=== PATIENT | female | born 1940 | race Caucasian/White ===

== ENCOUNTER 2017-02-07 12:16 | Inpatient (IN) | payer OTHER ==
[~2017-02-07] VITALS: Ht 152.4 cm; Wt 55.0 kg
[2017-02-07] VITALS (24 sets, daily range): BP systolic 76–135; BP diastolic 33–76
[2017-02-07] MEDS: metroNIDAZOLE 500MG/100ML 100 ML IV SCH
[2017-02-07] MEDS: methylPREDNISolone SOD SUCC 40 MG/ML VL IV SCH
[~2017-02-07 12:16] MED LIST: BECL0.07; IPRAAER5; THEOPHYLINE
[2017-02-07] MEDS ORDERED: ETOMIDATE (2MG/ML) 20ML VIAL IV ONE ×2 (13:13→16:15)
[2017-02-07] MEDS ORDERED: SUCCINYLCHOLINE CHLORIDE 20 MG/ML 10ML VIAL IV ONE ×2 (13:14→16:15)
[2017-02-07] MEDS ORDERED: MIDAZOLAM DRIP 100 mg/100mL NS 100 ML IV ONE (13:21)
[2017-02-07] MEDS ORDERED: SODIUM CHLORIDE 0.9% 1,000 ML IV ONE ×3 (13:45→17:30)
[2017-02-07] MEDS ORDERED: IPRATROPIUM BROM 0.5 MG/2.5ML INH SOL HHN ONE (13:45)
[2017-02-07] MEDS ORDERED: cefTRIAXone 1GM/50ML D5W 50 ML IV ONE (13:45)
[2017-02-07] MEDS ORDERED: methylPREDNISolone SOD SUCC 125 MG/2 ML VL IV ONE (13:45)
[2017-02-07] MEDS ORDERED: ALBUTEROL SULF 2.5 MG/0.5ML(0.5%) NEB SOLN HHN ONE (13:45)
[2017-02-07] MEDS ORDERED: AZITHROMYCIN 500MG/D5W 250ML 250 ML IV ONE (14:15)
[2017-02-07 14:31] LABS: Allen Test Yes; Base Excess -18.3 mmol/L (-2.0-2.0); Blood 02Sat 84.1 % (96-100); Blood COHb 0.8 % (0.5-1.5); Blood MetHb 0.3 % (0.0-1.5); HCO3 11.8 mmol/L (22-26.0); HHb 15.7 % (0.0-5.0); MODE VENT - A/C; O2Hb 83.2 % (94.0-97.0); PCO2 45.2 mmHg (35.0-45.0); PCO2(T) 45.2 mmHg (35.0-45.0); Sample Type Arterial; pH 7.036 (7.350-7.450)
[2017-02-07 14:39] LABS: DEFINITIVE VIEW TRANSMISSION; Hematocrit 36.2 % (36.0-46.0); Hemoglobin 11.6 g/dL (12.2-16.2); Mean Corpuscular Hemoglobin 27.1 pg (28.0-32.0); Mean Corpuscular Volume 84.6 fL (80.0-100.0); Mean Platelet Volume 6.9 fL (7.4-10.4); Platelet Count (auto) 517 10^3/uL (140-450); Red Cell Distribution Width 19.7 % (11.6-16.0); SUSPECT VIEW TRANSMISSION; White Blood Cell 25.5 10^3/uL (4.4-10.8)
[2017-02-07] MEDS ORDERED: NOREPINEPHRINE BITARTRATE 250 ML IV ONE (14:42)
[2017-02-07 14:47] LABS: Metamyelocytes % 0; Myelocytes % 0; Promyelocytes % 0; Reactive Lymphocytes 0
[2017-02-07] MEDS ORDERED: SODIUM BICARBONATE 8.4% INJ 50ML SYRINGE ONE ×2 (14:55→22:35)
[2017-02-07] MEDS ORDERED: DOPamine 1600MCG/ML 250 ML IV ONE (15:15)
[2017-02-07 15:16] LABS: Burr Cells FEW
[2017-02-07 15:17] LABS: Anisocytosis Slight
[2017-02-07 15:18] LABS: Large Platelets FEW; Platelet Estimate Increa
[2017-02-07] MEDS ORDERED: ENOXAPARIN SOD 30 MG/0.3 ML SYRINGE SC ONE (16:00)
[2017-02-07 16:06] LABS: Albumin 2.4 g/dL (3.4-5.0); Bilirubin, Total 0.2 mg/dL (0.2-1.0); Calcium 7.9 mg/dL (8.5-10.1); Magnesium 2.3 mg/dL (1.6-2.6)
[2017-02-07 16:17] LABS: Temperature: 22.9 C (20.0-25.0)
[2017-02-07] MEDS ORDERED: SODIUM BICARBONATE 8.4 % INJ 50ML VIAL IV ONE ×3 (16:30→22:00)
[2017-02-07] MEDS: SODIUM CHLORIDE 0.9% 1,000 ML IV SCH (16:50)
[2017-02-07] MEDS ORDERED: NITROGLYCERIN 0.4 MG SL TAB SL PRN (17:00)
[2017-02-07] MEDS ORDERED: PROMETHAZINE HCL 25 MG/ML 1ML IV PRN (17:00)
[2017-02-07] MEDS ORDERED: metroNIDAZOLE 500MG/100ML 100 ML IV ONE (17:00)
[2017-02-07] MEDS ORDERED: MORPHINE SULF INJ 2 MG/ML SYRINGE 1ML IV PRN ×2 (17:00)
[2017-02-07] MEDS ORDERED: PIPERACILLIN-TAZOB 2.25GM 50 ML IV ONE (17:00)
[2017-02-07] MEDS ORDERED: PANTOPRAZOLE SODIUM 40 MG/10 ML VIAL IV ONE (17:00)
[2017-02-07] MEDS ORDERED: ALBUTEROL SULF 2.5 MG/0.5ML(0.5%) NEB SOLN NEB PRN (17:00)
[2017-02-07 17:27] LABS: INR 1.02 (0.9-1.15); Partial Thromboplastin Time 32.3 sec (22.64-33.71); Prothrombin Time 11.1 sec (9.37-12.3)
[2017-02-07] MEDS ORDERED: EPINEPHrine HCL INJECTION 4 MG in D5W 5% 250 ML IV ONE (17:30)
[2017-02-07] MEDS ORDERED: ALBUMIN 25% 100 ML IV ONE (17:45)
[2017-02-07] MEDS: IPRATROPIUM BROM 0.5 MG/2.5ML INH SOL NEB SCH (18:00)
[2017-02-07] MEDS: ALBUTEROL SULF 2.5 MG/0.5ML(0.5%) NEB SOLN NEB SCH (18:00)
[2017-02-07] MEDS: PIPERACILLIN-TAZOB 2.25GM 50 ML IV SCH (19:00)
[2017-02-07 19:19] LABS: Hematocrit 30.9 % (36.0-46.0); Hemoglobin 9.8 g/dL (12.2-16.2)
[2017-02-07] MEDS: PHENYLEPHRINE INJ 20 MG in SODIUM CHL 0.9% 250 ML IV SCH ×2 (19:45→20:30)
[2017-02-07] MEDS: VASOPRESSIN 50 UNITS in SODIUM CHL 0.9% 247.5 ML IV SCH (19:45)
[2017-02-07] MEDS: NOREPINEPHRINE BITARTRATE 250 ML IV SCH (19:55)
[2017-02-07] MEDS: LINEZOLID 600MG/300ML 300 ML IV SCH (20:00)
[2017-02-07] MEDS ORDERED: EPINEPHrine HCL 250 ML IV ONE (20:17)
[2017-02-07] MEDS ORDERED: PHENYLEPHRINE IV 250 ML IV ONE (20:18)
[2017-02-07 21:43] LABS: Allen Test Modified; Base Excess -18.3 mmol/L (-2.0-2.0); Blood 02Sat 98.7 % (96-100); Blood COHb 0.7 % (0.5-1.5); Blood MetHb 0.3 % (0.0-1.5); HCO3 9.9 mmol/L (22-26.0); HHb 1.3 % (0.0-5.0); MODE VENT - A/C; O2Hb 97.7 % (94.0-97.0); PCO2 31.4 mmHg (35.0-45.0); PO2 224.2 mmHg (80.0-100.0); PO2(T) 222.7 mmHg (80.0-100.0); Sample Type Arterial; pH 7.115 (7.350-7.450)
[2017-02-07] MEDS ORDERED: SODIUM BICARBONATE 50ML VIAL 100 ML in SOD CHL 0.45% 1,000 ML IV SCH (22:00)
[2017-02-08] VITALS (84 sets, daily range): BP systolic 83–157; BP diastolic 34–120
[2017-02-08] MEDS: metroNIDAZOLE 500MG/100ML 100 ML IV SCH ×4 (00:21→18:55)
[2017-02-08] MEDS: PIPERACILLIN-TAZOB 2.25GM 50 ML IV SCH ×4 (00:22→19:13)
[2017-02-08] MEDS: methylPREDNISolone SOD SUCC 40 MG/ML VL IV SCH ×4 (00:22→18:00)
[2017-02-08 00:49] LABS: Hematocrit 29.5 % (36.0-46.0); Hemoglobin 9.4 g/dL (12.2-16.2)
[2017-02-08] MEDS: SODIUM CHLORIDE 0.9% 1,000 ML IV SCH ×3 (02:50→22:50)
[2017-02-08 03:52] LABS: DEFINITIVE VIEW TRANSMISSION; Hematocrit 28.4 % (36.0-46.0); Hemoglobin 9.3 g/dL (12.2-16.2); Mean Corpuscular Hemoglobin 27.1 pg (28.0-32.0); Mean Corpuscular Hgb Conc. 32.6 g/dL (32.0-36.0); Mean Corpuscular Volume 83.1 fL (80.0-100.0); Mean Platelet Volume 6.7 fL (7.4-10.4); Platelet Count (auto) 451 10^3/uL (140-450); White Blood Cell 22.8 10^3/uL (4.4-10.8)
[2017-02-08] MEDS ORDERED: MIDAZOLAM DRIP 100 mg/100mL NS 100 ML IV ONE ×2 (04:00→14:41)
[2017-02-08 04:05] LABS: Red Cell Distribution Width 20.1 % (11.6-16.0)
[2017-02-08 04:06] LABS: Metamyelocytes % 0; Myelocytes % 0; Promyelocytes % 0; Reactive Lymphocytes 0
[2017-02-08 04:18] LABS: Albumin 2.6 g/dL (3.4-5.0); BUN/Creatinine Ratio 20.7; Bilirubin, Total 0.3 mg/dL (0.2-1.0); Calcium 6.3 mg/dL (8.5-10.1); Total Protein 5.3 g/dL (6.4-8.2)
[2017-02-08 04:42] LABS: Anisocytosis Slight; Burr Cells MODERATE; Platelet Estimate Increased
[2017-02-08] MEDS: LINEZOLID 600MG/300ML 300 ML IV SCH ×2 (05:14→17:14)
[2017-02-08] MEDS: ALBUTEROL SULF 2.5 MG/0.5ML(0.5%) NEB SOLN NEB SCH ×4 (06:19→18:28)
[2017-02-08] MEDS: IPRATROPIUM BROM 0.5 MG/2.5ML INH SOL NEB SCH ×4 (06:19→18:28)
[2017-02-08] MEDS ORDERED: SODIUM BICARBONATE 50ML VIAL 150 ML in SOD CHL 0.45% 1,000 ML IV SCH ×2 (07:15→07:19)
[2017-02-08 08:39] LABS: Allen Test Modified; Base Excess -9.8 mmol/L (-2.0-2.0); Blood 02Sat 97.2 % (96-100); Blood COHb 1.1 % (0.5-1.5); Blood MetHb 0.3 % (0.0-1.5); HCO3 15.1 mmol/L (22-26.0); HHb 2.8 % (0.0-5.0); MODE VENT - A/C; O2Hb 95.8 % (94.0-97.0); PO2 102.9 mmHg (80.0-100.0); PO2(T) 102.9 mmHg (80.0-100.0); Sample Type Arterial
[2017-02-08] MEDS: ENOXAPARIN SOD 30 MG/0.3 ML SYRINGE SC SCH (09:41)
[2017-02-08] MEDS: ASPirin 81 mg TAB NG SCH (09:41)
[2017-02-08] MEDS ORDERED: DEXTROSE (50%) 50ML SYRG IV PRN (10:00)
[2017-02-08] MEDS: fentaNYL Drip 2500mCg/250mlNS 250 ML IV SCH (11:43)
[2017-02-08] MEDS: ACCU-CHEK COMFORT CURVE STRIP VI SCH ×2 (11:51→18:00)
[2017-02-08] MEDS: InsuLIN REG 1unit/0.01ml Soln (100units/ml) SC SCH ×2 (12:00→18:00)
[2017-02-08 12:21] LABS: Urine Bilirubin Negative (Negative); Urine Color Yellow (Yellow); Urine Ketone Negative (Negative); Urine Mucus FEW (None Seen); Urine Nitrite Negative (Negative); Urine RBC 1 /hpf (0 - 4); Urine Urobilinogen Normal (Negative)
[2017-02-08 12:26] LABS: Urine Blood 1+ /uL (Negative); Urine Glucose 3+ mg/dL (Normal)
[2017-02-08] MEDS: PHENYLEPHRINE INJ 20 MG in SODIUM CHL 0.9% 250 ML IV SCH ×2 (13:30→20:32)
[2017-02-08] MEDS: MIDAZOLAM DRIP 100 mg/100mL NS 100 ML IV SCH (14:55)
[2017-02-08 15:40] LABS: Allen Test Modified; Base Excess -3.6 mmol/L (-2.0-2.0); Blood 02Sat 95.3 % (96-100); Blood MetHb 0.3 % (0.0-1.5); HCO3 21.9 mmol/L (22-26.0); HHb 4.6 % (0.0-5.0); MODE VENT - A/C; O2Hb 94.1 % (94.0-97.0); PCO2 41.7 mmHg (35.0-45.0); PCO2(T) 41.7 mmHg (35.0-45.0); PO2 81.5 mmHg (80.0-100.0); PO2(T) 81.5 mmHg (80.0-100.0); Sample Type Arterial; pH 7.339 (7.350-7.450)
[2017-02-08] MEDS: NOREPINEPHRINE BITARTRATE 250 ML IV SCH (18:55)
[2017-02-08] MEDS: VASOPRESSIN 50 UNITS in SODIUM CHL 0.9% 247.5 ML IV SCH (19:45)
[2017-02-08] MEDS ORDERED: PHENYLEPHRINE IV 250 ML IV ONE (20:23)
[2017-02-08 20:31] LABS: Allen Test Modified; Base Excess 0.1 mmol/L (-2.0-2.0); Blood 02Sat 95.9 % (96-100); Blood COHb 0.8 % (0.5-1.5); Blood MetHb 0.3 % (0.0-1.5); HHb 4.1 % (0.0-5.0); MODE VENT - A/C; O2Hb 94.8 % (94.0-97.0); PO2 86.9 mmHg (80.0-100.0); PO2(T) 86.9 mmHg (80.0-100.0); Sample Type Arterial; pH 7.352 (7.350-7.450)
[2017-02-09] VITALS (96 sets, daily range): BP systolic 88–133; BP diastolic 49–84
[2017-02-09] MEDS: ALBUTEROL SULF 2.5 MG/0.5ML(0.5%) NEB SOLN NEB SCH ×4 (00:15→18:22)
[2017-02-09] MEDS: IPRATROPIUM BROM 0.5 MG/2.5ML INH SOL NEB SCH ×4 (00:15→18:22)
[2017-02-09] MEDS: metroNIDAZOLE 500MG/100ML 100 ML IV SCH ×5 (00:16→23:08)
[2017-02-09] MEDS: methylPREDNISolone SOD SUCC 40 MG/ML VL IV SCH ×5 (00:16→23:07)
[2017-02-09] MEDS: PIPERACILLIN-TAZOB 2.25GM 50 ML IV SCH ×5 (00:16→23:08)
[2017-02-09] MEDS: ACCU-CHEK COMFORT CURVE STRIP VI SCH ×4 (00:18→17:38)
[2017-02-09 03:52] LABS: Albumin 2.2 g/dL (3.4-5.0); BUN/Creatinine Ratio 24.5
[2017-02-09 03:55] LABS: Bilirubin, Total 0.2 mg/dL (0.2-1.0); Total Protein 5.3 g/dL (6.4-8.2)
[2017-02-09] MEDS: LINEZOLID 600MG/300ML 300 ML IV SCH ×2 (03:58→16:39)
[2017-02-09 04:26] LABS: Calcium 5.6 mg/dL (8.5-10.1)
[2017-02-09 04:49] LABS: Phosphorus 1.8 mg/dL (2.5-4.90)
[2017-02-09] MEDS: InsuLIN REG 1unit/0.01ml Soln (100units/ml) SC SCH ×4 (06:18→17:38)
[2017-02-09 07:00] LABS: Base Excess 0.4 mmol/L (-2.0-2.0); Blood 02Sat 95.8 % (96-100); Blood COHb 0.5 % (0.5-1.5); Blood MetHb 0.3 % (0.0-1.5); HCO3 25.4 mmol/L (22-26.0); HHb 4.2 % (0.0-5.0); MODE VENT - A/C; PCO2 42.4 mmHg (35.0-45.0); PCO2(T) 42.4 mmHg (35.0-45.0); PIP 18; PO2 87.5 mmHg (80.0-100.0); PO2(T) 87.5 mmHg (80.0-100.0); Sample Type Arterial; pH 7.395 (7.350-7.450)
[2017-02-09] MEDS: SODIUM CHLORIDE 0.9% 1,000 ML IV SCH (08:50)
[2017-02-09] MEDS: fentaNYL Drip 2500mCg/250mlNS 250 ML IV SCH (09:45)
[2017-02-09] MEDS: ENOXAPARIN SOD 30 MG/0.3 ML SYRINGE SC SCH (09:51)
[2017-02-09] MEDS: ASPirin 81 mg TAB NG SCH (09:52)
[2017-02-09] MEDS ORDERED: CALCIUM GLUC IV ONE (10:15)
[2017-02-09] MEDS ORDERED: POTASSIUM PHOSPHATE 44 MEQ in SODIUM CHL 0.9% 250 ML IV ONE (10:15)
[2017-02-09] MEDS ORDERED: SODIUM CHL 0.9% IV ONE (10:15)
[2017-02-09] MEDS ORDERED: SOD CHL 0.45% WITH 20MEQ KCL 1,000 ML IV ONE (10:45)
[2017-02-09] MEDS: PHENYLEPHRINE INJ 20 MG in SODIUM CHL 0.9% 250 ML IV SCH ×2 (13:25→13:37)
[2017-02-09] MEDS: MIDAZOLAM DRIP 100 mg/100mL NS 100 ML IV SCH (14:40)
[2017-02-09] MEDS ORDERED: Diabetisource AC 1 Liter GT SCH (17:00)
[2017-02-09] MEDS: NOREPINEPHRINE BITARTRATE 250 ML IV SCH (19:45)
[2017-02-09] MEDS: VASOPRESSIN 50 UNITS in SODIUM CHL 0.9% 247.5 ML IV SCH (19:45)
[2017-02-10] VITALS (91 sets, daily range): BP systolic 82–127; BP diastolic 45–82
[2017-02-10] MEDS: IPRATROPIUM BROM 0.5 MG/2.5ML INH SOL NEB SCH ×4 (00:05→18:33)
[2017-02-10] MEDS: ALBUTEROL SULF 2.5 MG/0.5ML(0.5%) NEB SOLN NEB SCH ×4 (00:05→18:32)
[2017-02-10] MEDS: LINEZOLID 600MG/300ML 300 ML IV SCH ×2 (04:22→17:00)
[2017-02-10 05:05] LABS: BUN/Creatinine Ratio 24.1; Bilirubin, Total 0.2 mg/dL (0.2-1.0); Potassium 3.7 mmol/L (3.5-5.1); Total Protein 4.7 g/dL (6.4-8.2)
[2017-02-10 05:09] LABS: Calcium 5.5 mg/dL (8.5-10.1)
[2017-02-10] MEDS: PHENYLEPHRINE INJ 20 MG in SODIUM CHL 0.9% 250 ML IV SCH ×4 (06:12→20:30)
[2017-02-10] MEDS: methylPREDNISolone SOD SUCC 40 MG/ML VL IV SCH ×3 (06:16→17:56)
[2017-02-10] MEDS: metroNIDAZOLE 500MG/100ML 100 ML IV SCH ×3 (06:16→17:55)
[2017-02-10] MEDS: InsuLIN REG 1unit/0.01ml Soln (100units/ml) SC SCH ×4 (06:17→18:08)
[2017-02-10] MEDS: ACCU-CHEK COMFORT CURVE STRIP VI SCH ×4 (06:17→18:08)
[2017-02-10] MEDS: PIPERACILLIN-TAZOB 2.25GM 50 ML IV SCH ×3 (06:18→19:33)
[2017-02-10] MEDS ORDERED: CALCIUM GLUC IV ONE (06:30)
[2017-02-10] MEDS ORDERED: SODIUM CHL 0.9% IV ONE (06:30)
[2017-02-10 07:38] LABS: Base Excess -0.6 mmol/L (-2.0-2.0); Blood 02Sat 96.1 % (96-100); Blood COHb 0.8 % (0.5-1.5); Blood MetHb 0.3 % (0.0-1.5); HCO3 24.6 mmol/L (22-26.0); HHb 3.9 % (0.0-5.0); MODE VENT - A/C; PCO2 43.1 mmHg (35.0-45.0); PCO2(T) 43.1 mmHg (35.0-45.0); PO2 88.4 mmHg (80.0-100.0); PO2(T) 88.4 mmHg (80.0-100.0); Sample Type Arterial; pH 7.375 (7.350-7.450)
[2017-02-10] MEDS: fentaNYL Drip 2500mCg/250mlNS 250 ML IV SCH (08:22)
[2017-02-10] MEDS: SOD CHL 0.45% WITH 20MEQ KCL 1,000 ML IV SCH ×2 (09:30→19:34)
[2017-02-10] MEDS: ENOXAPARIN SOD 30 MG/0.3 ML SYRINGE SC SCH (09:31)
[2017-02-10] MEDS: ASPirin 81 mg TAB NG SCH (09:31)
[2017-02-10] MEDS: MIDAZOLAM DRIP 100 mg/100mL NS 100 ML IV SCH (09:33)
[2017-02-10] MEDS ORDERED: POTASSIUM PHOSPHATE 26.4 MEQ in SODIUM CHL 0.9% 100 ML IV ONE (12:00)
[2017-02-10] MEDS: NOREPINEPHRINE BITARTRATE 250 ML IV SCH (19:45)
[2017-02-10] MEDS: VASOPRESSIN 50 UNITS in SODIUM CHL 0.9% 247.5 ML IV SCH (19:45)
[2017-02-11] VITALS (107 sets, daily range): BP systolic 89–131; BP diastolic 49–97
[2017-02-11] MEDS: metroNIDAZOLE 500MG/100ML 100 ML IV SCH ×5 (00:02→23:43)
[2017-02-11] MEDS: methylPREDNISolone SOD SUCC 40 MG/ML VL IV SCH ×5 (00:02→23:43)
[2017-02-11] MEDS: IPRATROPIUM BROM 0.5 MG/2.5ML INH SOL NEB SCH ×4 (00:23→18:16)
[2017-02-11] MEDS: ALBUTEROL SULF 2.5 MG/0.5ML(0.5%) NEB SOLN NEB SCH ×4 (00:23→18:16)
[2017-02-11] MEDS: PIPERACILLIN-TAZOB 2.25GM 50 ML IV SCH ×4 (01:00→22:00)
[2017-02-11] MEDS: LINEZOLID 600MG/300ML 300 ML IV SCH ×2 (04:56→18:30)
[2017-02-11] MEDS: SOD CHL 0.45% WITH 20MEQ KCL 1,000 ML IV SCH (05:02)
[2017-02-11 05:23] LABS: BUN/Creatinine Ratio 23.6; Bilirubin, Total 0.3 mg/dL (0.2-1.0); Phosphorus 4.6 mg/dL (2.5-4.90); Potassium 4.8 mmol/L (3.5-5.1); Total Protein 4.9 g/dL (6.4-8.2)
[2017-02-11 05:26] LABS: Calcium 5.8 mg/dL (8.5-10.1)
[2017-02-11] MEDS: MIDAZOLAM DRIP 100 mg/100mL NS 100 ML IV SCH (05:41)
[2017-02-11] MEDS ORDERED: CALCIUM GLUC 4.65 MEQ/10ML 4.65 MEQ in SODIUM CHL 0.9% 50 ML IV ONE ×2 (05:45→11:45)
[2017-02-11] MEDS ORDERED: CALCIUM GLUC 4.65 MEQ/10ML IV ONE (05:54)
[2017-02-11] MEDS: ACCU-CHEK COMFORT CURVE STRIP VI SCH ×5 (06:00→23:44)
[2017-02-11] MEDS: InsuLIN REG 1unit/0.01ml Soln (100units/ml) SC SCH ×5 (06:00→23:44)
[2017-02-11] MEDS: PHENYLEPHRINE INJ 20 MG in SODIUM CHL 0.9% 250 ML IV SCH ×3 (08:00→23:45)
[2017-02-11 08:48] LABS: DEFINITIVE VIEW TRANSMISSION; Hemoglobin 10.1 g/dL (12.2-16.2); Mean Corpuscular Hemoglobin 27.2 pg (28.0-32.0); Mean Corpuscular Hgb Conc. 32.6 g/dL (32.0-36.0); Mean Corpuscular Volume 83.6 fL (80.0-100.0); Mean Platelet Volume 7.7 fL (7.4-10.4); Platelet Count (auto) 326 10^3/uL (140-450); SUSPECT VIEW TRANSMISSION; White Blood Cell 17.4 10^3/uL (4.4-10.8)
[2017-02-11 08:54] LABS: Allen Test Yes; Base Excess -5.8 mmol/L (-2.0-2.0); Blood COHb 0.9 % (0.5-1.5); Blood MetHb 0.3 % (0.0-1.5); HHb 4.9 % (0.0-5.0); MODE VENT - A/C; O2Hb 93.9 % (94.0-97.0); PCO2 40.1 mmHg (35.0-45.0); PCO2(T) 40.1 mmHg (35.0-45.0); PO2 82.7 mmHg (80.0-100.0); PO2(T) 82.7 mmHg (80.0-100.0); Sample Type Arterial; pH 7.315 (7.350-7.450)
[2017-02-11 09:01] LABS: Red Cell Distribution Width 20.8 % (11.6-16.0)
[2017-02-11 09:02] LABS: Metamyelocytes % 0; Myelocytes % 0; Promyelocytes % 0; Reactive Lymphocytes 0
[2017-02-11 09:26] LABS: Platelet Estimate Adequate
[2017-02-11 09:28] LABS: Burr Cells FEW; Ovalocytes FEW
[2017-02-11] MEDS: METOCLOPRAMIDE HCL 5MG/ml INJ 2ml VIAL IV SCH ×3 (09:30→23:43)
[2017-02-11] MEDS: ENOXAPARIN SOD 30 MG/0.3 ML SYRINGE SC SCH (09:36)
[2017-02-11] MEDS: ASPirin 81 mg TAB NG SCH (09:36)
[2017-02-11] MEDS: fentaNYL Drip 2500mCg/250mlNS 250 ML IV SCH ×2 (09:45→23:00)
[2017-02-11] MEDS: SOD CHL 0.45% 1,000 ML IV SCH ×2 (11:45→21:45)
[2017-02-11] MEDS ORDERED: ALBUMIN 25% 0 ML IV ONE (15:10)
[2017-02-11 16:20] LABS: Allen Test Yes; Base Excess -6.5 mmol/L (-2.0-2.0); Blood 02Sat 96.5 % (96-100); Blood COHb 1.4 % (0.5-1.5); Blood MetHb 0.3 % (0.0-1.5); HCO3 18.4 mmol/L (22-26.0); HHb 3.4 % (0.0-5.0); MODE VENT - A/C; O2Hb 94.9 % (94.0-97.0); PCO2 34.3 mmHg (35.0-45.0); PCO2(T) 34.3 mmHg (35.0-45.0); PO2 98.6 mmHg (80.0-100.0); PO2(T) 98.6 mmHg (80.0-100.0); Sample Type Arterial; pH 7.347 (7.350-7.450)
[2017-02-11] MEDS: NOREPINEPHRINE BITARTRATE 250 ML IV SCH (19:45)
[2017-02-12] VITALS (107 sets, daily range): BP systolic 87–140; BP diastolic 46–92
[2017-02-12] MEDS: IPRATROPIUM BROM 0.5 MG/2.5ML INH SOL NEB SCH ×4 (00:05→17:57)
[2017-02-12] MEDS: ALBUTEROL SULF 2.5 MG/0.5ML(0.5%) NEB SOLN NEB SCH ×4 (00:05→17:57)
[2017-02-12] MEDS: PIPERACILLIN-TAZOB 2.25GM 50 ML IV SCH ×4 (01:10→19:15)
[2017-02-12 04:24] LABS: DEFINITIVE Y; Hematocrit 31.4 % (36.0-46.0); Hemoglobin 10.1 g/dL (12.2-16.2); Mean Corpuscular Hemoglobin 26.9 pg (28.0-32.0); Mean Corpuscular Hgb Conc. 32.1 g/dL (32.0-36.0); Mean Corpuscular Volume 83.7 fL (80.0-100.0); Mean Platelet Volume 7.9 fL (7.4-10.4); Platelet Count (auto) 309 10^3/uL (140-450); White Blood Cell 18.6 10^3/uL (4.4-10.8)
[2017-02-12 04:30] LABS: Red Cell Distribution Width 20.8 % (11.6-16.0)
[2017-02-12 04:31] LABS: Metamyelocytes % 0; Myelocytes % 0; Promyelocytes % 0; Reactive Lymphocytes 0
[2017-02-12 04:41] LABS: Albumin 1.8 g/dL (3.4-5.0)
[2017-02-12 04:45] LABS: BUN/Creatinine Ratio 24.5; Bilirubin, Total 0.2 mg/dL (0.2-1.0); Total Protein 4.6 g/dL (6.4-8.2)
[2017-02-12] MEDS: LINEZOLID 600MG/300ML 300 ML IV SCH ×2 (04:51→17:04)
[2017-02-12 05:00] LABS: Calcium 5.6 mg/dL (8.5-10.1)
[2017-02-12 05:11] LABS: Anisocytosis Slight; Burr Cells FEW; Hypochromia Slight; Ovalocytes FEW; Platelet Estimate Adequate
[2017-02-12] MEDS: METOCLOPRAMIDE HCL 5MG/ml INJ 2ml VIAL IV SCH ×4 (05:49→23:54)
[2017-02-12] MEDS: metroNIDAZOLE 500MG/100ML 100 ML IV SCH ×4 (05:49→23:55)
[2017-02-12] MEDS: ACCU-CHEK COMFORT CURVE STRIP VI SCH ×4 (05:50→23:55)
[2017-02-12] MEDS: methylPREDNISolone SOD SUCC 40 MG/ML VL IV SCH ×4 (05:50→23:54)
[2017-02-12] MEDS: InsuLIN REG 1unit/0.01ml Soln (100units/ml) SC SCH ×3 (05:50→18:00)
[2017-02-12] MEDS: SOD CHL 0.45% 1,000 ML IV SCH ×2 (07:45→17:13)
[2017-02-12] MEDS: PHENYLEPHRINE INJ 20 MG in SODIUM CHL 0.9% 250 ML IV SCH ×3 (08:05→21:39)
[2017-02-12] MEDS: ENOXAPARIN SOD 30 MG/0.3 ML SYRINGE SC SCH ×2 (09:23→09:25)
[2017-02-12] MEDS: ASPirin 81 mg TAB NG SCH (09:25)
[2017-02-12] MEDS ORDERED: CALCIUM CHL 100MG/ML 1,000 MG in D5W 5% 100 ML IV ONE (10:00)
[2017-02-12 10:23] LABS: Allen Test Yes; Base Excess -6.2 mmol/L (-2.0-2.0); Blood 02Sat 93.7 % (96-100); Blood COHb 0.7 % (0.5-1.5); Blood MetHb 0.3 % (0.0-1.5); HCO3 17.7 mmol/L (22-26.0); HHb 6.2 % (0.0-5.0); MODE VENT - A/C; O2Hb 92.8 % (94.0-97.0); PCO2 30.1 mmHg (35.0-45.0); PCO2(T) 30.1 mmHg (35.0-45.0); PO2 74.2 mmHg (80.0-100.0); PO2(T) 74.2 mmHg (80.0-100.0); Sample Type Arterial; pH 7.388 (7.350-7.450)
[2017-02-12] MEDS ORDERED: SODIUM CHL 0.9% IV ONE (12:15)
[2017-02-12] MEDS ORDERED: CALCIUM GLUC IV ONE (12:15)
[2017-02-12] MEDS ORDERED: CALCIUM GLUC 4.65 MEQ/10ML 4.65 MEQ in SODIUM CHL 0.9% 50 ML IV ONE (12:30)
[2017-02-12] MEDS: MIDAZOLAM DRIP 100 mg/100mL NS 100 ML IV SCH (14:40)
[2017-02-12] MEDS: LORazepam 2MG/ML-1ML VIAL IV PRN (15:14)
[2017-02-12] MEDS: NOREPINEPHRINE BITARTRATE 250 ML IV SCH (19:45)
[2017-02-13] VITALS (94 sets, daily range): BP systolic 79–155; BP diastolic 49–89
[2017-02-13] MEDS: PIPERACILLIN-TAZOB 2.25GM 50 ML IV SCH ×5 (01:00→23:31)
[2017-02-13 04:02] LABS: CONDITION Y; DEFINITIVE Y; Hematocrit 31.1 % (36.0-46.0); Hemoglobin 10.2 g/dL (12.2-16.2); Mean Corpuscular Hemoglobin 27.3 pg (28.0-32.0); Mean Corpuscular Hgb Conc. 32.7 g/dL (32.0-36.0); Mean Corpuscular Volume 83.2 fL (80.0-100.0); Mean Platelet Volume 7.6 fL (7.4-10.4); Red Cell Distribution Width 19.7 % (11.6-16.0); SUSPECT Y; White Blood Cell 17.5 10^3/uL (4.4-10.8)
[2017-02-13 04:07] LABS: Platelet Count (auto) 304 10^3/uL (140-450)
[2017-02-13 04:08] LABS: Metamyelocytes % 0; Myelocytes % 0; Promyelocytes % 0; Reactive Lymphocytes 0
[2017-02-13 04:21] LABS: Albumin 1.8 g/dL (3.4-5.0); BUN/Creatinine Ratio 26.5; Calcium 6.2 mg/dL (8.5-10.1); Potassium 4.7 mmol/L (3.5-5.1)
[2017-02-13] MEDS: LINEZOLID 600MG/300ML 300 ML IV SCH ×2 (04:22→17:21)
[2017-02-13] MEDS: SOD CHL 0.45% 1,000 ML IV SCH ×2 (04:23→13:45)
[2017-02-13 04:30] LABS: Bilirubin, Total 0.3 mg/dL (0.2-1.0); Total Protein 4.5 g/dL (6.4-8.2)
[2017-02-13 04:47] LABS: Anisocytosis Slight; Burr Cells FEW; Platelet Estimate Adequate
[2017-02-13 04:48] LABS: Ovalocytes FEW
[2017-02-13] MEDS: InsuLIN REG 1unit/0.01ml Soln (100units/ml) SC SCH ×4 (06:00→17:41)
[2017-02-13] MEDS: methylPREDNISolone SOD SUCC 40 MG/ML VL IV SCH ×4 (06:25→23:32)
[2017-02-13] MEDS: IPRATROPIUM BROM 0.5 MG/2.5ML INH SOL NEB SCH ×4 (06:25→18:43)
[2017-02-13] MEDS: ALBUTEROL SULF 2.5 MG/0.5ML(0.5%) NEB SOLN NEB SCH ×4 (06:25→18:43)
[2017-02-13] MEDS: METOCLOPRAMIDE HCL 5MG/ml INJ 2ml VIAL IV SCH ×4 (06:25→23:33)
[2017-02-13] MEDS: metroNIDAZOLE 500MG/100ML 100 ML IV SCH ×4 (06:26→23:32)
[2017-02-13] MEDS: ACCU-CHEK COMFORT CURVE STRIP VI SCH ×3 (06:29→17:37)
[2017-02-13 08:38] LABS: Allen Test Modified; Base Excess -7.3 mmol/L (-2.0-2.0); Blood COHb 0.9 % (0.5-1.5); Blood MetHb 0.3 % (0.0-1.5); HCO3 17.3 mmol/L (22-26.0); MODE VENT - A/C; O2Hb 94.8 % (94.0-97.0); PCO2 31.9 mmHg (35.0-45.0); PCO2(T) 31.9 mmHg (35.0-45.0); PIP 17; PO2 95.2 mmHg (80.0-100.0); PO2(T) 95.2 mmHg (80.0-100.0); Sample Type Arterial; pH 7.352 (7.350-7.450)
[2017-02-13] MEDS: PHENYLEPHRINE INJ 20 MG in SODIUM CHL 0.9% 250 ML IV SCH ×2 (09:05→17:25)
[2017-02-13] MEDS: ASPirin 81 mg TAB NG SCH (09:45)
[2017-02-13] MEDS: ENOXAPARIN SOD 30 MG/0.3 ML SYRINGE SC SCH (09:45)
[2017-02-13] MEDS: fentaNYL Drip 2500mCg/250mlNS 250 ML IV SCH ×2 (09:45→12:58)
[2017-02-13 11:09] LABS: Vitamin D 25-Hydroxy 15 ng/mL (.); Vitamin D-2 25-Hydroxy <1.0 ng/mL (.)
[2017-02-13] MEDS: MIDAZOLAM DRIP 100 mg/100mL NS 100 ML IV SCH (14:40)
[2017-02-14] VITALS (89 sets, daily range): BP systolic 75–142; BP diastolic 44–93
[2017-02-14] MEDS: ALBUTEROL SULF 2.5 MG/0.5ML(0.5%) NEB SOLN NEB SCH ×4 (00:16→18:40)
[2017-02-14] MEDS: IPRATROPIUM BROM 0.5 MG/2.5ML INH SOL NEB SCH ×4 (00:16→18:40)
[2017-02-14] MEDS: NOREPINEPHRINE BITARTRATE 250 ML IV SCH ×2 (01:42→19:45)
[2017-02-14] MEDS: PHENYLEPHRINE INJ 20 MG in SODIUM CHL 0.9% 250 ML IV SCH ×3 (01:45→18:45)
[2017-02-14] MEDS: LINEZOLID 600MG/300ML 300 ML IV SCH (04:40)
[2017-02-14] MEDS: methylPREDNISolone SOD SUCC 40 MG/ML VL IV SCH ×4 (05:48→23:44)
[2017-02-14] MEDS: PIPERACILLIN-TAZOB 2.25GM 50 ML IV SCH ×2 (05:48→13:00)
[2017-02-14] MEDS: METOCLOPRAMIDE HCL 5MG/ml INJ 2ml VIAL IV SCH ×4 (05:48→23:44)
[2017-02-14] MEDS: metroNIDAZOLE 500MG/100ML 100 ML IV SCH ×4 (05:48→23:45)
[2017-02-14] MEDS: fentaNYL Drip 2500mCg/250mlNS 250 ML IV SCH (05:49)
[2017-02-14 08:48] LABS: Allen Test Yes; Base Excess -4.5 mmol/L (-2.0-2.0); Blood 02Sat 96.6 % (96-100); Blood COHb 1.1 % (0.5-1.5); Blood MetHb 0.3 % (0.0-1.5); HCO3 19.5 mmol/L (22-26.0); HHb 3.4 % (0.0-5.0); MODE VENT - A/C; O2Hb 95.2 % (94.0-97.0); PCO2 32.1 mmHg (35.0-45.0); PCO2(T) 32.1 mmHg (35.0-45.0); PO2 94.9 mmHg (80.0-100.0); PO2(T) 94.9 mmHg (80.0-100.0); Sample Type Arterial; pH 7.401 (7.350-7.450)
[2017-02-14 09:44] LABS: CONDITION AutoValidated; DEFINITIVE SEE PRINTOUT; Hematocrit 31.6 % (36.0-46.0); Mean Corpuscular Hemoglobin 26.5 pg (28.0-32.0); Mean Corpuscular Hgb Conc. 31.8 g/dL (32.0-36.0); Mean Corpuscular Volume 83.3 fL (80.0-100.0); Mean Platelet Volume 7.1 fL (7.4-10.4); Platelet Count (auto) 292 10^3/uL (140-450); SUSPECT SEE PRINTOUT; White Blood Cell 19.7 10^3/uL (4.4-10.8)
[2017-02-14] MEDS: SOD CHL 0.45% 1,000 ML IV SCH ×4 (09:45→19:55)
[2017-02-14 09:55] LABS: Red Cell Distribution Width 20.1 % (11.6-16.0)
[2017-02-14 09:56] LABS: Metamyelocytes % 0; Myelocytes % 0; Promyelocytes % 0; Reactive Lymphocytes 0
[2017-02-14 10:02] LABS: Albumin 1.9 g/dL (3.4-5.0); BUN/Creatinine Ratio 28.5; Potassium 4.3 mmol/L (3.5-5.1)
[2017-02-14 10:05] LABS: Bilirubin, Total 0.3 mg/dL (0.2-1.0); Total Protein 4.7 g/dL (6.4-8.2)
[2017-02-14] MEDS: ASPirin 81 mg TAB NG SCH (10:13)
[2017-02-14] MEDS: ENOXAPARIN SOD 30 MG/0.3 ML SYRINGE SC SCH (10:13)
[2017-02-14 10:40] LABS: Anisocytosis Slight; Burr Cells FEW; Platelet Estimate Adequate
[2017-02-14 10:41] LABS: Hypochromia Slight; Ovalocytes FEW
[2017-02-14] MEDS: ACCU-CHEK COMFORT CURVE STRIP VI SCH ×5 (11:33→23:45)
[2017-02-14] MEDS: InsuLIN REG 1unit/0.01ml Soln (100units/ml) SC SCH ×5 (11:38→23:45)
[2017-02-14] MEDS ORDERED: ERGOCALCIFEROL 50,000 UNIT(1.25MG) CAP PO SCH (12:30)
[2017-02-14] MEDS ORDERED: CALCIUM GLUC IV ONE (13:00)
[2017-02-14] MEDS ORDERED: SODIUM CHL 0.9% IV ONE (13:00)
[2017-02-14] MEDS: ERGOCALCIFEROL NG SCH (14:17)
[2017-02-14] MEDS: MIDAZOLAM DRIP 100 mg/100mL NS 100 ML IV SCH (14:40)
[2017-02-14 15:36] LABS: Allen Test Modified; Base Excess -3.5 mmol/L (-2.0-2.0); Blood 02Sat 96.9 % (96-100); Blood COHb 0.5 % (0.5-1.5); Blood MetHb 0.3 % (0.0-1.5); HCO3 19.7 mmol/L (22-26.0); HHb 3.1 % (0.0-5.0); MODE VENT - CPAP; O2Hb 96.1 % (94.0-97.0); PCO2 29.8 mmHg (35.0-45.0); PCO2(T) 29.8 mmHg (35.0-45.0); PO2 100.4 mmHg (80.0-100.0); PO2(T) 100.4 mmHg (80.0-100.0); Pressure Support 8; Sample Type Arterial; pH 7.439 (7.350-7.450)
[2017-02-14] MEDS: LEVOFLOXACIN 500MG 100 ML IV SCH (16:00)
[2017-02-14] MEDS ORDERED: VANCOMYCIN PER PHARMACY 0 MG IV SCH (16:00)
[2017-02-14] MEDS ORDERED: TPN PER PHARMACY 0 ML IV SCH (16:15)
[2017-02-14] MEDS ORDERED: fentaNYL CITRATE 100 MCG/2 ML VL ONE (18:13)
[2017-02-14] MEDS ORDERED: MIDAZOLAM HCL 1MG/1ML-2 ML VIAL ONE (18:14)
[2017-02-14] MEDS ORDERED: ETOMIDATE (2MG/ML) 20ML VIAL IV ONE (18:14)
[2017-02-14] MEDS ORDERED: SUCCINYLCHOLINE CHLORIDE 20 MG/ML 10ML VIAL IV ONE (18:14)
[2017-02-14] MEDS ORDERED: PHENYLEPHRINE IV 250 ML IV ONE (18:28)
[2017-02-14] MEDS: VANCOMYCIN 750 MG in D5W 5% 250 ML IV SCH (19:00)
[2017-02-14] MEDS ORDERED: AMINO ACID INFUSION IN D10W 1,000 ML IV ONE (20:00)
[2017-02-14 20:17] LABS: Allen Test Yes; Base Excess -3.7 mmol/L (-2.0-2.0); Blood 02Sat 98.1 % (96-100); Blood COHb 0.4 % (0.5-1.5); Blood MetHb 0.3 % (0.0-1.5); HCO3 21.2 mmol/L (22-26.0); HHb 1.9 % (0.0-5.0); MODE VENT - A/C; O2Hb 97.4 % (94.0-97.0); PCO2 37.5 mmHg (35.0-45.0); PCO2(T) 37.5 mmHg (35.0-45.0); Sample Type Arterial
[2017-02-14 20:19] LABS: Partial Thromboplastin Time 30.7 sec (22.64-33.71)
[2017-02-14 20:29] LABS: INR 1.2 (0.9-1.15); Prothrombin Time 13.1 sec (9.37-12.3)
[2017-02-15] VITALS (72 sets, daily range): BP systolic 88–130; BP diastolic 44–86
[2017-02-15] MEDS: IPRATROPIUM BROM 0.5 MG/2.5ML INH SOL NEB SCH ×5 (00:44→18:31)
[2017-02-15] MEDS: ALBUTEROL SULF 2.5 MG/0.5ML(0.5%) NEB SOLN NEB SCH ×5 (00:44→18:31)
[2017-02-15] MEDS: PHENYLEPHRINE INJ 20 MG in SODIUM CHL 0.9% 250 ML IV SCH ×3 (02:45→19:25)
[2017-02-15 04:06] LABS: CONDITION AutoValidated; DEFINITIVE SEE PRINTOUT
[2017-02-15 04:08] LABS: Hematocrit 27.6 % (36.0-46.0); Mean Corpuscular Hemoglobin 26.9 pg (28.0-32.0); Mean Corpuscular Hgb Conc. 32.5 g/dL (32.0-36.0); Mean Corpuscular Volume 82.9 fL (80.0-100.0); Mean Platelet Volume 6.9 fL (7.4-10.4); Platelet Count (auto) 246 10^3/uL (140-450); Red Cell Distribution Width 19.3 % (11.6-16.0); White Blood Cell 15.4 10^3/uL (4.4-10.8)
[2017-02-15 04:11] LABS: Metamyelocytes % 0; Myelocytes % 0; Promyelocytes % 0; Reactive Lymphocytes 0
[2017-02-15 04:20] LABS: Albumin 1.7 g/dL (3.4-5.0); BUN/Creatinine Ratio 31.1; Bilirubin, Total 0.4 mg/dL (0.2-1.0); Magnesium 1.1 mg/dL (1.6-2.6); Phosphorus 2.1 mg/dL (2.5-4.90); Potassium 3.6 mmol/L (3.5-5.1); Total Protein 4.1 g/dL (6.4-8.2)
[2017-02-15 04:21] LABS: Calcium 5.8 mg/dL (8.5-10.1)
[2017-02-15 05:15] LABS: Platelet Estimate Adequate
[2017-02-15 05:16] LABS: Anisocytosis Slight; Hypersegmented Neutrophils Present; Ovalocytes FEW
[2017-02-15 05:17] LABS: Burr Cells FEW
[2017-02-15] MEDS: methylPREDNISolone SOD SUCC 40 MG/ML VL IV SCH ×3 (05:40→17:31)
[2017-02-15] MEDS: metroNIDAZOLE 500MG/100ML 100 ML IV SCH ×3 (05:40→17:31)
[2017-02-15] MEDS: InsuLIN REG 1unit/0.01ml Soln (100units/ml) SC SCH ×3 (05:40→17:28)
[2017-02-15] MEDS: METOCLOPRAMIDE HCL 5MG/ml INJ 2ml VIAL IV SCH ×3 (05:40→17:31)
[2017-02-15] MEDS: ACCU-CHEK COMFORT CURVE STRIP VI SCH ×3 (05:40→17:27)
[2017-02-15] MEDS: MIDAZOLAM DRIP 100 mg/100mL NS 100 ML IV SCH ×2 (06:00→14:40)
[2017-02-15 06:40] LABS: Allen Test Yes; Base Excess -5.6 mmol/L (-2.0-2.0); Blood 02Sat 95.3 % (96-100); Blood COHb 0.7 % (0.5-1.5); Blood MetHb 0.3 % (0.0-1.5); HCO3 18.9 mmol/L (22-26.0); HHb 4.7 % (0.0-5.0); MODE VENT - A/C; O2Hb 94.3 % (94.0-97.0); PCO2 32.7 mmHg (35.0-45.0); PCO2(T) 32.7 mmHg (35.0-45.0); PO2 85.3 mmHg (80.0-100.0); PO2(T) 85.3 mmHg (80.0-100.0); Sample Type Arterial; pH 7.379 (7.350-7.450)
[2017-02-15] MEDS: fentaNYL Drip 2500mCg/250mlNS 250 ML IV SCH (09:49)
[2017-02-15] MEDS: LEVOFLOXACIN 500MG 100 ML IV SCH (09:50)
[2017-02-15] MEDS: ENOXAPARIN SOD 30 MG/0.3 ML SYRINGE SC SCH (09:50)
[2017-02-15] MEDS: ASPirin 81 mg TAB NG SCH (09:50)
[2017-02-15] MEDS ORDERED: CALCIUM GLUC 4.65 MEQ/10ML 4.65 MEQ in SODIUM CHL 0.9% 50 ML IV ONE ×2 (10:00)
[2017-02-15] MEDS: SOD CHL 0.45% 1,000 ML IV SCH (11:06)
[2017-02-15] MEDS: CALCITRIOL 1 MCG/ML AMPULE IV SCH (11:06)
[2017-02-15] MEDS: MAGNESIUM SULFATE 1GM/100ML 100 ML IV SCH ×2 (11:29→13:01)
[2017-02-15] MEDS: VANCOMYCIN 750 MG in D5W 5% 250 ML IV SCH (18:38)
[2017-02-15] MEDS: NOREPINEPHRINE BITARTRATE 250 ML IV SCH (19:45)
[2017-02-15] MEDS ORDERED: TPN PER PHARMACY IV NR ×10 (20:00)
[2017-02-16] VITALS (83 sets, daily range): BP systolic 78–151; BP diastolic 35–92
[2017-02-16] MEDS: ALBUTEROL SULF 2.5 MG/0.5ML(0.5%) NEB SOLN NEB SCH ×4 (00:15→18:31)
[2017-02-16] MEDS: IPRATROPIUM BROM 0.5 MG/2.5ML INH SOL NEB SCH ×4 (00:15→18:31)
[2017-02-16] MEDS: methylPREDNISolone SOD SUCC 40 MG/ML VL IV SCH ×5 (00:16→23:29)
[2017-02-16] MEDS: metroNIDAZOLE 500MG/100ML 100 ML IV SCH ×5 (00:16→23:30)
[2017-02-16] MEDS: METOCLOPRAMIDE HCL 5MG/ml INJ 2ml VIAL IV SCH ×5 (00:16→23:30)
[2017-02-16] MEDS: PHENYLEPHRINE INJ 20 MG in SODIUM CHL 0.9% 250 ML IV SCH ×3 (03:45→20:25)
[2017-02-16 04:41] LABS: CONDITION AutoValidated; DEFINITIVE SEE PRINTOUT; Hematocrit 27.9 % (36.0-46.0); Hemoglobin 8.9 g/dL (12.2-16.2); Mean Corpuscular Hemoglobin 26.7 pg (28.0-32.0); Mean Corpuscular Hgb Conc. 31.9 g/dL (32.0-36.0); Mean Corpuscular Volume 83.8 fL (80.0-100.0); Mean Platelet Volume 6.9 fL (7.4-10.4); Platelet Count (auto) 242 10^3/uL (140-450); Red Cell Distribution Width 19.7 % (11.6-16.0); White Blood Cell 11.3 10^3/uL (4.4-10.8)
[2017-02-16 04:55] LABS: Metamyelocytes % 0; Myelocytes % 0; Promyelocytes % 0; Reactive Lymphocytes 0
[2017-02-16 05:02] LABS: Potassium 3.6 mmol/L (3.5-5.1)
[2017-02-16 05:07] LABS: Albumin 1.8 g/dL (3.4-5.0); BUN/Creatinine Ratio 42.6; Calcium 6.2 mg/dL (8.5-10.1); Magnesium 1.5 mg/dL (1.6-2.6)
[2017-02-16 05:10] LABS: Bilirubin, Total 0.4 mg/dL (0.2-1.0); Phosphorus 1.7 mg/dL (2.5-4.90); Total Protein 4.3 g/dL (6.4-8.2)
[2017-02-16] MEDS: SOD CHL 0.45% 1,000 ML IV SCH (05:48)
[2017-02-16] MEDS: ACCU-CHEK COMFORT CURVE STRIP VI SCH ×5 (06:00→23:31)
[2017-02-16] MEDS: InsuLIN REG 1unit/0.01ml Soln (100units/ml) SC SCH ×4 (06:00→17:51)
[2017-02-16 06:54] LABS: Anisocytosis Slight; Burr Cells FEW; Hypochromia Slight; Ovalocytes FEW; Platelet Estimate Adequate
[2017-02-16 06:57] LABS: Base Excess -0.7 mmol/L (-2.0-2.0); Blood 02Sat 95.1 % (96-100); Blood MetHb 0.3 % (0.0-1.5); HCO3 23.9 mmol/L (22-26.0); HHb 4.8 % (0.0-5.0); MODE VENT - A/C; O2Hb 93.9 % (94.0-97.0); PCO2 38.8 mmHg (35.0-45.0); PCO2(T) 38.8 mmHg (35.0-45.0); PO2 82.4 mmHg (80.0-100.0); PO2(T) 82.4 mmHg (80.0-100.0); Sample Type Arterial; pH 7.407 (7.350-7.450)
[2017-02-16] MEDS: MIDAZOLAM DRIP 100 mg/100mL NS 100 ML IV SCH (07:31)
[2017-02-16] MEDS ORDERED: SODIUM PHOSPHATES 20 MEQ in SODIUM CHL 0.9% 100 ML IV ONE (08:15)
[2017-02-16] MEDS: fentaNYL Drip 2500mCg/250mlNS 250 ML IV SCH (09:45)
[2017-02-16] MEDS: LEVOFLOXACIN 500MG 100 ML IV SCH (09:46)
[2017-02-16] MEDS: ENOXAPARIN SOD 30 MG/0.3 ML SYRINGE SC SCH (09:46)
[2017-02-16] MEDS: ASPirin 81 mg TAB NG SCH (10:07)
[2017-02-16] MEDS ORDERED: MAGNESIUM SULFATE 1GM/100ML 100 ML IV ONE (11:30)
[2017-02-16] MEDS ORDERED: CALCIUM GLUC 4.65 MEQ/10ML 4.65 MEQ in SODIUM CHL 0.9% 50 ML IV ONE (13:00)
[2017-02-16] MEDS: VANCOMYCIN 750 MG in D5W 5% 250 ML IV SCH (18:06)
[2017-02-16] MEDS: NOREPINEPHRINE BITARTRATE 250 ML IV SCH (19:45)
[2017-02-16] MEDS ORDERED: FAT EMULSION IV NR ×11 (20:00)
[2017-02-16] MEDS ORDERED: [UNRECOGNIZED DRUG - OTHER] IV NR ×11 (20:00)
[2017-02-16] MEDS ORDERED: POTASSIUM ACETATE IV NR ×11 (20:00)
[2017-02-16] MEDS ORDERED: SODIUM PHOSPHATES IV NR ×11 (20:00)
[2017-02-17] VITALS (102 sets, daily range): BP systolic 82–155; BP diastolic 31–102
[2017-02-17] MEDS: InsuLIN REG 1unit/0.01ml Soln (100units/ml) SC SCH ×4 (00:28→17:34)
[2017-02-17] MEDS: ALBUTEROL SULF 2.5 MG/0.5ML(0.5%) NEB SOLN NEB SCH ×4 (00:47→18:25)
[2017-02-17] MEDS: IPRATROPIUM BROM 0.5 MG/2.5ML INH SOL NEB SCH ×4 (00:47→18:25)
[2017-02-17] MEDS: fentaNYL Drip 2500mCg/250mlNS 250 ML IV SCH (02:07)
[2017-02-17] MEDS: SOD CHL 0.45% 1,000 ML IV SCH ×2 (03:10→14:57)
[2017-02-17] MEDS ORDERED: PHENYLEPHRINE IV 250 ML IV ONE (04:03)
[2017-02-17] MEDS: PHENYLEPHRINE INJ 20 MG in SODIUM CHL 0.9% 250 ML IV SCH ×2 (04:45→13:05)
[2017-02-17 05:30] LABS: Albumin 1.9 g/dL (3.4-5.0); BUN/Creatinine Ratio 59.2; Calcium 6.5 mg/dL (8.5-10.1); Magnesium 2.1 mg/dL (1.6-2.6); Potassium 3.7 mmol/L (3.5-5.1)
[2017-02-17 05:33] LABS: Bilirubin, Total 0.4 mg/dL (0.2-1.0); Phosphorus 2.3 mg/dL (2.5-4.90); Total Protein 4.6 g/dL (6.4-8.2)
[2017-02-17] MEDS: ACCU-CHEK COMFORT CURVE STRIP VI SCH ×3 (06:01→17:31)
[2017-02-17] MEDS: methylPREDNISolone SOD SUCC 40 MG/ML VL IV SCH ×3 (06:01→17:31)
[2017-02-17] MEDS: metroNIDAZOLE 500MG/100ML 100 ML IV SCH ×3 (06:01→17:31)
[2017-02-17] MEDS: METOCLOPRAMIDE HCL 5MG/ml INJ 2ml VIAL IV SCH ×3 (06:01→17:31)
[2017-02-17 08:01] LABS: Allen Test Yes; Base Excess 1.3 mmol/L (-2.0-2.0); Blood 02Sat 96.2 % (96-100); Blood COHb 0.7 % (0.5-1.5); Blood MetHb 0.3 % (0.0-1.5); HCO3 26.2 mmol/L (22-26.0); HHb 3.8 % (0.0-5.0); IE RATIO 1.2.8; MODE VENT - A/C; O2Hb 95.2 % (94.0-97.0); PIP 18; PO2 98.1 mmHg (80.0-100.0); PO2(T) 98.1 mmHg (80.0-100.0); Sample Type Arterial; Spont Vt 440; pH 7.403 (7.350-7.450)
[2017-02-17] MEDS: CALCITRIOL 1 MCG/ML AMPULE IV SCH (10:24)
[2017-02-17] MEDS: ASPirin 81 mg TAB NG SCH (10:24)
[2017-02-17] MEDS: LEVOFLOXACIN 500MG 100 ML IV SCH (10:24)
[2017-02-17] MEDS: ENOXAPARIN SOD 30 MG/0.3 ML SYRINGE SC SCH (10:24)
[2017-02-17] MEDS: LORazepam 2MG/ML-1ML VIAL IV PRN (11:43)
[2017-02-17] MEDS ORDERED: CALCIUM GLUC 4.65 MEQ/10ML 4.65 MEQ in NS 0.9% 50 ML IV ONE (12:00)
[2017-02-17] MEDS ORDERED: SIMV-13 PO (14:35)
[2017-02-17] MEDS ORDERED: THEO400T PO (14:35)
[2017-02-17] MEDS ORDERED: POTA1TAB4 PO (14:35)
[2017-02-17] MEDS ORDERED: ALLO300T2 PO (14:35)
[2017-02-17] MEDS ORDERED: ASPI-306 PO (14:35)
[2017-02-17] MEDS ORDERED: ASPI-407 PO (14:35)
[2017-02-17] MEDS ORDERED: RANI150C11 PO (14:35)
[2017-02-17] MEDS ORDERED: ENAL-3 PO (14:35)
[2017-02-17] MEDS ORDERED: FURO20TA3 PO (14:35)
[2017-02-17] MEDS: MIDAZOLAM DRIP 100 mg/100mL NS 100 ML IV SCH (14:40)
[2017-02-17] MEDS ORDERED: PANTOPRAZOLE SODIUM 40 MG/10 ML VIAL IV ONE (17:08)
[2017-02-17] MEDS ORDERED: VANCOMYCIN 750 MG in D5W 5% 250 ML IV SCH (19:00)
[2017-02-17] MEDS: NOREPINEPHRINE BITARTRATE 250 ML IV SCH (19:45)
[2017-02-17] MEDS ORDERED: TPN PER PHARMACY IV NR ×10 (20:00)
[2017-02-18] VITALS (101 sets, daily range): BP systolic 83–170; BP diastolic 47–110
[2017-02-18] MEDS: metroNIDAZOLE 500MG/100ML 100 ML IV SCH ×4 (00:29→17:23)
[2017-02-18] MEDS: METOCLOPRAMIDE HCL 5MG/ml INJ 2ml VIAL IV SCH ×4 (00:30→17:24)
[2017-02-18] MEDS: methylPREDNISolone SOD SUCC 40 MG/ML VL IV SCH ×4 (00:30→17:23)
[2017-02-18] MEDS: ACCU-CHEK COMFORT CURVE STRIP VI SCH ×4 (00:30→17:25)
[2017-02-18] MEDS: ALBUTEROL SULF 2.5 MG/0.5ML(0.5%) NEB SOLN NEB SCH ×4 (00:32→18:20)
[2017-02-18] MEDS: IPRATROPIUM BROM 0.5 MG/2.5ML INH SOL NEB SCH ×4 (00:32→18:20)
[2017-02-18] MEDS: InsuLIN REG 1unit/0.01ml Soln (100units/ml) SC SCH ×4 (00:40→17:24)
[2017-02-18] MEDS: PHENYLEPHRINE INJ 20 MG in SODIUM CHL 0.9% 250 ML IV SCH ×4 (03:01→22:25)
[2017-02-18 05:45] LABS: Potassium 3.8 mmol/L (3.5-5.1)
[2017-02-18 05:48] LABS: BUN/Creatinine Ratio 66.7; Calcium 6.7 mg/dL (8.5-10.1)
[2017-02-18 05:53] LABS: Bilirubin, Total 0.5 mg/dL (0.2-1.0); Phosphorus 1.7 mg/dL (2.5-4.90); Total Protein 4.9 g/dL (6.4-8.2)
[2017-02-18] MEDS: SOD CHL 0.45% 1,000 ML IV SCH (07:20)
[2017-02-18] MEDS: LORazepam 2MG/ML-1ML VIAL IV PRN (07:54)
[2017-02-18 08:57] LABS: Allen Test Modified; Base Excess -0.7 mmol/L (-2.0-2.0); Blood 02Sat 96.2 % (96-100); Blood COHb 0.7 % (0.5-1.5); Blood MetHb 0.3 % (0.0-1.5); HHb 3.8 % (0.0-5.0); MODE VENT - A/C; O2Hb 95.2 % (94.0-97.0); PCO2 34.3 mmHg (35.0-45.0); PCO2(T) 34.3 mmHg (35.0-45.0); Sample Type Arterial; pH 7.445 (7.350-7.450)
[2017-02-18] MEDS: LEVOFLOXACIN 750MG 150 ML IV SCH (09:42)
[2017-02-18] MEDS: ENOXAPARIN SOD 30 MG/0.3 ML SYRINGE SC SCH (09:42)
[2017-02-18] MEDS: ASPirin 81 mg TAB NG SCH (09:42)
[2017-02-18] MEDS: PANTOPRAZOLE SODIUM 40 MG/10 ML VIAL IV SCH (09:43)
[2017-02-18] MEDS ORDERED: CALCIUM GLUC 4.65 MEQ/10ML 4.65 MEQ in NS 0.9% 50 ML IV ONE (10:00)
[2017-02-18] MEDS: fentaNYL Drip 2500mCg/250mlNS 250 ML IV SCH (11:39)
[2017-02-18] MEDS ORDERED: SODIUM PHOSP 20MEQ(15MMOL) IN NS 100 ML IV ONE (12:00)
[2017-02-18] MEDS: VANCOMYCIN 750 MG in D5W 5% 250 ML IV SCH (13:19)
[2017-02-18] MEDS: MIDAZOLAM DRIP 100 mg/100mL NS 100 ML IV SCH (14:40)
[2017-02-18] MEDS ORDERED: POTASSIUM PHOSPHATE 26.4 MEQ in SODIUM CHL 0.9% 100 ML IV ONE (14:45)
[2017-02-18] MEDS: NOREPINEPHRINE BITARTRATE 250 ML IV SCH (19:45)
[2017-02-18] MEDS ORDERED: TPN PER PHARMACY IV NR ×10 (20:00)
[2017-02-19] VITALS (83 sets, daily range): BP systolic 53–133; BP diastolic 3–89
[2017-02-19] MEDS: ACCU-CHEK COMFORT CURVE STRIP VI SCH ×4 (00:14→18:00)
[2017-02-19] MEDS: METOCLOPRAMIDE HCL 5MG/ml INJ 2ml VIAL IV SCH ×4 (00:15→18:12)
[2017-02-19] MEDS: metroNIDAZOLE 500MG/100ML 100 ML IV SCH ×4 (00:15→18:12)
[2017-02-19] MEDS: methylPREDNISolone SOD SUCC 40 MG/ML VL IV SCH ×4 (00:15→18:12)
[2017-02-19] MEDS: MIDAZOLAM DRIP 100 mg/100mL NS 100 ML IV SCH ×2 (00:17→23:07)
[2017-02-19] MEDS: ALBUTEROL SULF 2.5 MG/0.5ML(0.5%) NEB SOLN NEB SCH ×4 (00:24→17:52)
[2017-02-19] MEDS: IPRATROPIUM BROM 0.5 MG/2.5ML INH SOL NEB SCH ×4 (00:24→17:52)
[2017-02-19 05:35] LABS: Albumin 1.6 g/dL (3.4-5.0); BUN/Creatinine Ratio 103.6; Bilirubin, Total 0.4 mg/dL (0.2-1.0); Calcium 6.2 mg/dL (8.5-10.1); Phosphorus 2.3 mg/dL (2.5-4.90); Potassium 3.9 mmol/L (3.5-5.1); Total Protein 3.9 g/dL (6.4-8.2)
[2017-02-19] MEDS: fentaNYL Drip 2500mCg/250mlNS 250 ML IV SCH ×2 (06:07→21:10)
[2017-02-19] MEDS: SOD CHL 0.45% 1,000 ML IV SCH ×2 (06:07→16:40)
[2017-02-19] MEDS: InsuLIN REG 1unit/0.01ml Soln (100units/ml) SC SCH ×4 (06:08→18:00)
[2017-02-19] MEDS: PHENYLEPHRINE INJ 20 MG in SODIUM CHL 0.9% 250 ML IV SCH ×2 (06:45→08:39)
[2017-02-19] MEDS: VANCOMYCIN 750 MG in D5W 5% 250 ML IV SCH (06:56)
[2017-02-19] MEDS: ENOXAPARIN SOD 30 MG/0.3 ML SYRINGE SC SCH (10:00)
[2017-02-19] MEDS: PANTOPRAZOLE SODIUM 40 MG/10 ML VIAL IV SCH (10:00)
[2017-02-19] MEDS: LEVOFLOXACIN 750MG 150 ML IV SCH (10:00)
[2017-02-19] MEDS: ASPirin 81 mg TAB NG SCH (10:00)
[2017-02-19] MEDS: CALCITRIOL 1 MCG/ML AMPULE IV SCH (10:00)
[2017-02-19 10:36] LABS: Allen Test Yes; Base Excess 3.6 mmol/L (-2.0-2.0); Blood 02Sat 90.9 % (96-100); Blood COHb 0.9 % (0.5-1.5); Blood MetHb 0.3 % (0.0-1.5); HCO3 27.5 mmol/L (22-26.0); MODE VENT - A/C; O2Hb 89.8 % (94.0-97.0); PCO2 38.7 mmHg (35.0-45.0); PCO2(T) 38.7 mmHg (35.0-45.0); PO2 61.6 mmHg (80.0-100.0); PO2(T) 61.6 mmHg (80.0-100.0); Sample Type Arterial; pH 7.469 (7.350-7.450)
[2017-02-19] MEDS ORDERED: CALCIUM GLUC 4.65 MEQ/10ML 4.65 MEQ in NS 0.9% 50 ML IV ONE (11:00)
[2017-02-19] MEDS ORDERED: SODIUM PHOSP 20MEQ(15MMOL) IN NS 100 ML IV ONE (12:00)
[2017-02-19] MEDS ORDERED: PHENYLEPHRINE INJ 40 MG in SODIUM CHL 0.9% 250 ML IV SCH (15:46)
[2017-02-19] MEDS: PHENYLEPHRINE INJ 40 MG in SODIUM CHL 0.9% 250 ML IV SCH ×2 (15:47→23:07)
[2017-02-19] MEDS: NOREPINEPHRINE BITARTRATE 250 ML IV SCH (18:40)
[2017-02-19] MEDS ORDERED: TPN PER PHARMACY IV NR ×11 (20:00)
[2017-02-20] VITALS (96 sets, daily range): BP systolic 77–153; BP diastolic 35–87
[2017-02-20] MEDS: metroNIDAZOLE 500MG/100ML 100 ML IV SCH ×2 (00:30→06:14)
[2017-02-20] MEDS: METOCLOPRAMIDE HCL 5MG/ml INJ 2ml VIAL IV SCH ×4 (00:30→18:08)
[2017-02-20] MEDS: methylPREDNISolone SOD SUCC 40 MG/ML VL IV SCH ×4 (00:30→18:08)
[2017-02-20] MEDS: VANCOMYCIN 750 MG in D5W 5% 250 ML IV SCH ×2 (01:05→19:09)
[2017-02-20] MEDS ORDERED: PHENYLEPHRINE IV 250 ML IV ONE (02:50)
[2017-02-20 05:20] LABS: CONDITION Y; DEFINITIVE SEE PRINTOUT; Hematocrit 26.6 % (36.0-46.0); Hemoglobin 8.5 g/dL (12.2-16.2); Mean Corpuscular Hemoglobin 26.6 pg (28.0-32.0); Mean Corpuscular Hgb Conc. 31.9 g/dL (32.0-36.0); Mean Corpuscular Volume 83.4 fL (80.0-100.0); Mean Platelet Volume 8.9 fL (7.4-10.4); Platelet Count (auto) 78 10^3/uL (140-450); Red Cell Distribution Width 19.3 % (11.6-16.0); SUSPECT SEE PRINTOUT; White Blood Cell 23.6 10^3/uL (4.4-10.8)
[2017-02-20 05:35] LABS: Metamyelocytes % 0; Myelocytes % 0; Promyelocytes % 0; Reactive Lymphocytes 0
[2017-02-20 05:44] LABS: Albumin 1.5 g/dL (3.4-5.0); BUN/Creatinine Ratio 96.6; Bilirubin, Total 0.4 mg/dL (0.2-1.0); Calcium 6.2 mg/dL (8.5-10.1); Magnesium 1.8 mg/dL (1.6-2.6); Potassium 4.2 mmol/L (3.5-5.1); Total Protein 3.9 g/dL (6.4-8.2)
[2017-02-20] MEDS: InsuLIN REG 1unit/0.01ml Soln (100units/ml) SC SCH ×4 (06:15→18:00)
[2017-02-20] MEDS: ACCU-CHEK COMFORT CURVE STRIP VI SCH ×4 (06:15→18:08)
[2017-02-20 06:37] LABS: Hypersegmented Neutrophils Present
[2017-02-20 06:39] LABS: Anisocytosis Slight; Platelet Estimate Decreased
[2017-02-20 06:40] LABS: Hypochromia Slight; Ovalocytes FEW
[2017-02-20] MEDS: IPRATROPIUM BROM 0.5 MG/2.5ML INH SOL NEB SCH ×4 (06:41→18:30)
[2017-02-20] MEDS: ALBUTEROL SULF 2.5 MG/0.5ML(0.5%) NEB SOLN NEB SCH ×4 (06:41→18:30)
[2017-02-20 07:48] LABS: Allen Test Modified; Base Excess 0.1 mmol/L (-2.0-2.0); Blood 02Sat 95.9 % (96-100); Blood COHb 0.7 % (0.5-1.5); Blood MetHb 0.3 % (0.0-1.5); HCO3 25.3 mmol/L (22-26.0); HHb 4.1 % (0.0-5.0); MODE VENT - A/C; O2Hb 94.9 % (94.0-97.0); PCO2 43.6 mmHg (35.0-45.0); PCO2(T) 43.6 mmHg (35.0-45.0); PO2 91.1 mmHg (80.0-100.0); PO2(T) 91.1 mmHg (80.0-100.0); Sample Type Arterial; pH 7.382 (7.350-7.450)
[2017-02-20] MEDS: fentaNYL Drip 2500mCg/250mlNS 250 ML IV SCH ×2 (08:27→21:18)
[2017-02-20] MEDS ORDERED: CALCIUM GLUC 4.65 MEQ/10ML 4.65 MEQ in NS 0.9% 50 ML IV ONE (09:00)
[2017-02-20] MEDS: FLUCONAZOLE 200MG/100ML 100 ML IV SCH (09:12)
[2017-02-20] MEDS: PANTOPRAZOLE SODIUM 40 MG/10 ML VIAL IV SCH (09:30)
[2017-02-20] MEDS: LEVOFLOXACIN 750MG 150 ML IV SCH (09:30)
[2017-02-20] MEDS: PHENYLEPHRINE INJ 40 MG in SODIUM CHL 0.9% 250 ML IV SCH ×3 (09:53→21:33)
[2017-02-20] MEDS: ASPirin 81 mg TAB NG SCH (10:00)
[2017-02-20] MEDS: ENOXAPARIN SOD 30 MG/0.3 ML SYRINGE SC SCH (10:00)
[2017-02-20] MEDS: MIDAZOLAM DRIP 100 mg/100mL NS 100 ML IV SCH (11:50)
[2017-02-20] MEDS: SOD CHL 0.45% 1,000 ML IV SCH (13:10)
[2017-02-20] MEDS: PIPERACILLIN-TAZOB 3.375GM/D5W100ML IV SCH ×2 (14:36→22:34)
[2017-02-20] MEDS ORDERED: TPN PER PHARMACY IV NR ×11 (20:00)
[2017-02-21] VITALS (87 sets, daily range): BP systolic 54–162; BP diastolic 26–81
[2017-02-21] MEDS: METOCLOPRAMIDE HCL 5MG/ml INJ 2ml VIAL IV SCH ×3 (00:07→12:29)
[2017-02-21] MEDS: methylPREDNISolone SOD SUCC 40 MG/ML VL IV SCH ×3 (00:07→12:29)
[2017-02-21] MEDS: IPRATROPIUM BROM 0.5 MG/2.5ML INH SOL NEB SCH ×3 (00:46→12:03)
[2017-02-21] MEDS: ALBUTEROL SULF 2.5 MG/0.5ML(0.5%) NEB SOLN NEB SCH ×3 (00:46→12:03)
[2017-02-21] MEDS: PIPERACILLIN-TAZOB 3.375GM/D5W100ML IV SCH ×3 (02:27→14:00)
[2017-02-21] MEDS: MIDAZOLAM DRIP 100 mg/100mL NS 100 ML IV SCH (02:48)
[2017-02-21 04:23] LABS: Albumin 1.5 g/dL (3.4-5.0); BUN/Creatinine Ratio 103.3; Bilirubin, Total 0.4 mg/dL (0.2-1.0); Phosphorus 2.7 mg/dL (2.5-4.90); Potassium 4.2 mmol/L (3.5-5.1); Total Protein 4.2 g/dL (6.4-8.2)
[2017-02-21] MEDS: ACCU-CHEK COMFORT CURVE STRIP VI SCH ×3 (06:00→11:47)
[2017-02-21] MEDS: InsuLIN REG 1unit/0.01ml Soln (100units/ml) SC SCH ×3 (07:00→12:29)
[2017-02-21] MEDS: fentaNYL Drip 2500mCg/250mlNS 250 ML IV SCH (08:51)
[2017-02-21] MEDS: NOREPINEPHRINE BITARTRATE 250 ML IV SCH (08:51)
[2017-02-21] MEDS: LEVOFLOXACIN 750MG 150 ML IV SCH (10:00)
[2017-02-21] MEDS: ENOXAPARIN SOD 30 MG/0.3 ML SYRINGE SC SCH (10:00)
[2017-02-21] MEDS: CALCITRIOL 1 MCG/ML AMPULE IV SCH (10:00)
[2017-02-21] MEDS: ASPirin 81 mg TAB NG SCH (10:00)
[2017-02-21 10:01] LABS: Allen Test Yes; Base Excess -1.1 mmol/L (-2.0-2.0); Blood 02Sat 87.6 % (96-100); Blood COHb 0.7 % (0.5-1.5); HCO3 26.5 mmol/L (22-26.0); HHb 12.3 % (0.0-5.0); IE RATIO 1.2.8; MODE VENT - A/C; PCO2 60.3 mmHg (35.0-45.0); PCO2(T) 60.3 mmHg (35.0-45.0); PIP 29; PO2 62.6 mmHg (80.0-100.0); PO2(T) 62.6 mmHg (80.0-100.0); Sample Type Arterial; Spont Vt 456
[2017-02-21] MEDS: PANTOPRAZOLE SODIUM 40 MG/10 ML VIAL IV SCH (10:12)
[2017-02-21] MEDS: FLUCONAZOLE 200MG/100ML 100 ML IV SCH (10:12)
[2017-02-21] MEDS: PHENYLEPHRINE INJ 40 MG in SODIUM CHL 0.9% 250 ML IV SCH (10:56)
[2017-02-21 12:19] LABS: Base Excess -1.1 mmol/L (-2.0-2.0); Blood 02Sat 98.3 % (96-100); Blood COHb 0.7 % (0.5-1.5); Blood MetHb 0.3 % (0.0-1.5); HCO3 25.5 mmol/L (22-26.0); HHb 1.7 % (0.0-5.0); IE RATIO 1.2.1; MODE VENT - A/C; O2Hb 97.3 % (94.0-97.0); PIP 36; PO2 167.4 mmHg (80.0-100.0); PO2(T) 167.4 mmHg (80.0-100.0); Sample Type Arterial; Spont Vt 495; pH 7.316 (7.350-7.450)
[2017-02-21] MEDS: VANCOMYCIN 750 MG in D5W 5% 250 ML IV SCH (13:00)
[2017-02-21] MEDS: ERGOCALCIFEROL NG SCH (13:30)
[2017-02-21] MEDS ORDERED: LORazepam 2MG/ML-1ML VIAL IV PRN (14:45)
[2017-02-21] MEDS ORDERED: TPN PER PHARMACY IV NR ×11 (20:00)
[2017-02-21] MEDS: MORPHINE SULF INJ 2 MG/ML SYRINGE 1ML IV PRN (23:34)
[2017-02-22] MEDS: MORPHINE SULF INJ 2 MG/ML SYRINGE 1ML IV PRN (04:21)
[2017-02-22 04:56] VITALS: BP 120/71
[2017-02-22 09:00] VITALS: BP 140/77
[2017-02-22 10:39] LABS: Albumin 1.7 g/dL (3.4-5.0); BUN/Creatinine Ratio 97.9; Bilirubin, Total 0.5 mg/dL (0.2-1.0); Phosphorus 3.4 mg/dL (2.5-4.90); Potassium 4.9 mmol/L (3.5-5.1); Total Protein 4.6 g/dL (6.4-8.2)
[2017-02-22 12:30] VITALS: BP 131/75
== END 2017-02-22 16:30 | disposition expired | DRG 870 ==
LOC: ER 12:16 → EDBD 12:16 → ICU WEST 12:17 → WEST WING 02-21 20:24
PROVIDERS: ADMIT Internal Medicine; ATTEND Internal Medicine
PROC: 5A1955Z Respiratory Ventilation, Greater than 96 Consecutive Hours (ICD-10-PCS; principal; 2017-02-07)
PROC: 0BH17EZ Insertion of Endotracheal Airway into Trachea, Via Natural or Artificial Opening (ICD-10-PCS; 2017-02-07)
PROC: 0W9930Z Drainage of Right Pleural Cavity with Drainage Device, Percutaneous Approach (ICD-10-PCS; 2017-02-07)
PROC: 02H633Z Insertion of Infusion Device into Right Atrium, Percutaneous Approach (ICD-10-PCS; 2017-02-07)
PROC: 02HV33Z Insertion of Infusion Device into Superior Vena Cava, Percutaneous Approach (ICD-10-PCS; 2017-02-08)
DX: A41.9 Sepsis, unspecified organism (principal); J96.01 Acute respiratory failure with hypoxia; R65.21 Severe sepsis with septic shock; N17.0 Acute kidney failure with tubular necrosis; I21.4 Non-ST elevation (NSTEMI) myocardial infarction; E43 Unspecified severe protein-calorie malnutrition; J15.1 Pneumonia due to Pseudomonas; G93.41 Metabolic encephalopathy; J44.0 Chronic obstructive pulmonary disease with (acute) lower respiratory infection; A04.7 Enterocolitis due to Clostridium difficile; J93.9 Pneumothorax, unspecified; E87.0 Hyperosmolality and hypernatremia; Z99.11 Dependence on respirator [ventilator] status; J44.1 Chronic obstructive pulmonary disease with (acute) exacerbation; Z66 Do not resuscitate; Z51.5 Encounter for palliative care; K21.9 Gastro-esophageal reflux disease without esophagitis; N18.9 Chronic kidney disease, unspecified; E83.51 Hypocalcemia; E03.9 Hypothyroidism, unspecified; E83.39 Other disorders of phosphorus metabolism; K75.9 Inflammatory liver disease, unspecified; I12.9 Hypertensive chronic kidney disease with stage 1 through stage 4 chronic kidney disease, or unspecified chronic kidney disease; F17.210 Nicotine dependence, cigarettes, uncomplicated; E56.9 Vitamin deficiency, unspecified; F02.80 Dementia in other diseases classified elsewhere, unspecified severity, without behavioral disturbance, psychotic disturbance, mood disturbance, and anxiety; G30.9 Alzheimer's disease, unspecified; K27.9 Peptic ulcer, site unspecified, unspecified as acute or chronic, without hemorrhage or perforation; R73.9 Hyperglycemia, unspecified; Z87.11 Personal history of peptic ulcer disease; Z83.3 Family history of diabetes mellitus; Z90.49 Acquired absence of other specified parts of digestive tract
CPT/HCPCS: 31500; 36415; 36600; 71010; 74176; 76775; 80053; 80061; 80202; 81001; 82040; 82150; 82306; 82330; 82550; 82570; 82805; 82962; 83605; 83690; 83735; 83880; 83970; 84100; 84156; 84300; 84443; 84478; 84484; 85007; 85014; 85018; 85027; 85045; 85379; 85610; 85652; 85730; 86141; 87040; 87070; 87077; 87081; 87086; 87186; 87205; 93005; 93306; 93970; 94002; 94003; 94640; 94660; 96365; 96372; 96375; 99291; C9113; J0171; J0330; J0636; J0696; J1450; J1815; J1956; J2250; J2543; J3010; J3490; J7060; J7131